=== PATIENT | male | born 1985 | race Caucasian/White ===

== ENCOUNTER 2018-09-18 05:59 | Emergency (ER) | payer SELFPAY ==
[2018-09-18 06:11] VITALS: BP 158/90
== END 2018-09-18 07:08 | disposition left against medical advice (07) ==
LOC: ED 05:59
DX: F10.239 Alcohol dependence with withdrawal, unspecified (principal)

== ENCOUNTER 2018-09-18 08:05 | Emergency (ER) | payer SELFPAY ==
[~2018-09-18] VITALS: Ht 177.8 cm; Wt 78.9 kg
[2018-09-18 08:08] VITALS: BP 194/123; Ht 177.8 cm; Wt 78.9 kg
== END 2018-09-18 08:34 | disposition left against medical advice (07) ==
LOC: ED 08:05
DX: F10.239 Alcohol dependence with withdrawal, unspecified (principal); F41.9 Anxiety disorder, unspecified